=== PATIENT | female | born 2005 | race Caucasian/White ===

== ENCOUNTER → 2024-06-07 11:09 | Outpatient (CLI) | payer OTHER, MEDICAID, SELFPAY ==
--- NOTE | 2024-06-07 11:13 | DI.US.S_ITS ---
PROCEDURE: US PELVIC COMPLETE INDICATIONS: Pelvic and perineal pain TECHNIQUE: Real-time scanning was performed of the pelvic organs, with image documentation. Additional endovaginal scanning was necessary due to incomplete visualization of the adnexal and endometrial structures by transabdominal scanning. COMPARISON: None. FINDINGS: Uterus: Uterus is anteverted and normal in size at 6.5 x 6.4 x 3.7 cm. Focus of heterogeneous echogenicity within the left anterior intramural region measuring 1.8 x 1.7 x 1.6 cm. The endometrium measures 2 mm combined thickness. Ovaries: The right ovary measures 4.3 x 3.3 x 2.6 cm, with a calculated ovarian volume of 19.3 cc. The left ovary measures 2.8 x 2.8 x 2.2 cm, with a calculated ovarian volume of 9 cc. Simple right ovarian cyst measuring 3.2 x 3.2 x 1.8 cm. Other: No pathologic free abdominal or pelvic fluid. IMPRESSION: Simple left ovarian cyst. We strive to produce accurate, complete, and clear reports of imaging services. To assist us in improving patient care, this report was composed using standard report templates and voice recognition software. Therefore, it may contain abnormal punctuation, insertions and/or omissions. Occasional wrong-word or sound-alike substitutions may occur. Though we review the report and make efforts to correct it, we do recommend that the report be read carefully in proper context to recognize any text inaccuracies. Dictated by: Ashely Noonan M.D. on 06/07/2024 at 22:51 Approved by: Ashely Noonan M.D. on 06/07/2024 at 22:52
== END ==
PROVIDERS: PCP Family Medicine; Referring Provider Family Medicine; Visit Provider Family Medicine
DX: N83.292 Other ovarian cyst, left side (principal); R10.2 Pelvic and perineal pain
CPT/HCPCS: 76830; 76856